=== PATIENT | male | born 1990 | race Caucasian/White ===

== ENCOUNTER 2021-12-22 13:44 | Emergency (ER) | payer SELFPAY ==
[2021-12-22] MEDS ORDERED: DIPHTH,PERTUSS(ACELL),TET 0.5 ML DISP.SYRIN IM ONE ×2 (14:03→14:07)
[2021-12-22 14:05] VITALS: BP 121/88; PULSE 78; RESP 16; TEMP 99.1; BMI 26.5
== END 2021-12-22 15:14 | disposition home or self-care (01) ==
LOC: FER 13:44
PROC: 0HQFXZZ Repair Right Hand Skin, External Approach (ICD-10-PCS; principal; 2021-12-22)
PROC: 3E0234Z Introduction of Serum, Toxoid and Vaccine into Muscle, Percutaneous Approach (ICD-10-PCS; 2021-12-22)
DX: S61.411A Laceration without foreign body of right hand, initial encounter (principal); W25.XXXA Contact with sharp glass, initial encounter
CPT/HCPCS: 73130-TC-RT-FY; 90715; 99283-25

== ENCOUNTER 2022-01-01 17:05 | Emergency (ER) | payer OTHER ==
[2022-01-01 17:35] VITALS: BP 102/71; PULSE 78; RESP 16; TEMP 98; BMI 26.5
== END 2022-01-01 18:00 | disposition home or self-care (01) ==
LOC: FER 17:05
DX: Z48.02 Encounter for removal of sutures (principal)
CPT/HCPCS: 99281-25

== ENCOUNTER 2022-02-19 17:37 | Emergency (ER) | payer OTHER ==
[2022-02-19 17:54] VITALS: BP 138/90; PULSE 67; RESP 16; TEMP 98; BMI 27.2
[2022-02-19] MEDS ORDERED: LIDOCAINE HCL/EPINEPHRINE/PF 20 ML VIAL IM ONE (18:03)
[2022-02-19] MEDS ORDERED: LIDOCAINE HCL/EPINEPHRINE/PF 20 ML VIAL ONE (18:14)
== END 2022-02-19 18:43 | disposition home or self-care (01) ==
LOC: FER 17:37
PROC: 0HQ1XZZ Repair Face Skin, External Approach (ICD-10-PCS; principal; 2022-02-19)
DX: S01.511A Laceration without foreign body of lip, initial encounter (principal); V49.40XA Driver injured in collision with unspecified motor vehicles in traffic accident, initial encounter
CPT/HCPCS: 99282-25

== ENCOUNTER 2022-02-22 17:25 | Emergency (ER) | payer OTHER ==
[2022-02-22 17:33] VITALS: BP 150/100; PULSE 76; RESP 16; TEMP 98.9; BMI 27.1
[2022-02-22] MEDS ORDERED: AMOX TR/POT CLAV 875MG/125MG TABLETS (FP) PO ONE (17:33)
[2022-02-22] MEDS ORDERED: AMOX TR/POT CLAV 875MG/125MG TABLETS (FP) ONE (17:45)
== END 2022-02-22 18:15 | disposition home or self-care (01) ==
LOC: FER 17:25
DX: S01.511A Laceration without foreign body of lip, initial encounter (principal); T81.33XA Disruption of traumatic injury wound repair, initial encounter
CPT/HCPCS: 99283-25

== ENCOUNTER 2024-11-10 15:21 | Emergency (ER) | payer SELFPAY ==
[2024-11-10 15:30] VITALS: BP 119/88; PULSE 63; RESP 18; TEMP 98.2; BMI 27.8
[2024-11-10] MEDS ORDERED: ACETAMINOPHEN INJECTION 100 ML ONE (17:19)
[2024-11-10] MEDS: ACETAMINOPHEN 1000 MG/100 ML BAG IVPB ONE (17:19)
[2024-11-10] MEDS ORDERED: LIDOCAINE HCL 2% (20ML MULTI-DOSE VIAL) ONE (19:26)
[2024-11-10 21:13] LABS: HCV DIAGNOSTIC IN-HOUSE W/RFLX NON-REACTIVE (NONREACTIVE)
[2024-11-10 21:14] LABS: HIV INTERPRETATION NEGATIVE (NEGATIVE)
== END 2024-11-10 20:22 | disposition home or self-care (01) ==
LOC: FER 15:21
PROC: 3E033NZ Introduction of Analgesics, Hypnotics, Sedatives into Peripheral Vein, Percutaneous Approach (ICD-10-PCS; principal; 2024-11-10)
PROC: 3E03329 Introduction of Other Anti-infective into Peripheral Vein, Percutaneous Approach (ICD-10-PCS; 2024-11-10)
DX: S62.630B Displaced fracture of distal phalanx of right index finger, initial encounter for open fracture (principal); W23.0XXA Caught, crushed, jammed, or pinched between moving objects, initial encounter; Y92.29 Other specified public building as the place of occurrence of the external cause; Y93.K1 Activity, walking an animal
CPT/HCPCS: 36415; 73140-TC-RT-FY; 86803; 87389; 99284-25